=== PATIENT | male | born 1965 | race Caucasian/White ===

== ENCOUNTER 2021-07-01 15:17 | Emergency (ER) | payer MEDICARE, MEDICAID ==
[~2021-07-01] VITALS: Ht 182.9 cm; Wt 88.0 kg
[2021-07-01] MEDS ORDERED: fentaNYL PF VIAL 100 MCG/2 ML VIAL IVP ONE (16:45)
--- NOTE | 2021-07-01 16:52 | PHYS DOC ---
Past Medical History Additional Past Medical Histor: Hep C, closed head injury, drug abuse Past Surgical History: Other Additional Past Surgical Histo: urethral dilation, "cysts removed from my urinary canal" Smoking Status: Current Every Day Smoker Additional Information: 1ppd Alcohol Use: Occasionally Additional Information: reports drinking twice a week General Adult EDM: Chief Complaint: LOWER EXTREMITY EDEMA HPI: HPI: Patient is a 55 year old male who presents with 2 years of right knee pain and left calf pain. But he stating that he is also having bilateral lower leg swelling which has been going on for less than a year. Patient is not forthcoming with information. He first told me he was having numbness and tingling and then stated he was not having numbness and tingling. States he is just having pain that is sharp. He does use a walker. When asked why he is needing to use a walker he states " because I cannot walk without it". I then asked what happened that caused you to need the walker? He then stated " I do not know. I fell a while back and broke my back or something like that." Rates his pain a 10 out of 10. When asked if anything makes his pain worse or better he states " it just hurts". Patient was sent here by [facility] [place] to rule out clots in his leg. Patient has a history of smoking 1 pack a day, drug abuse, closed head injury, hep C, urethral dilation. Review of Systems: Review of Systems: Constitutional: Denies fever or chills. [] Eyes: Denies change in visual acuity. [] HENT: Denies nasal congestion or sore throat. [] Respiratory: Denies cough or shortness of breath. [] Cardiovascular: Denies chest pain or edema. [] GI: Denies abdominal pain, nausea, vomiting, bloody stools or diarrhea. [] : Denies dysuria. [] Musculoskeletal: Denies back pain or + right knee joint pain. + Left calf [] Integument: Denies rash. [] Neurologic: Denies headache, focal weakness or sensory changes. [] Endocrine: Denies polyuria or polydipsia. [] Lymphatic: Denies swollen glands. [] Psychiatric: Denies depression or anxiety. [] Heart Score: C/O Chest Pain: No Current Medications: Current Medications Medications (Trade) Dose Ordered Sig/Louie Start Time Stop Time Status Last Admin Dose Admin Fentanyl Citrate (Fentanyl 2ml Vial) 50 mcg 1X ONCE 07/01/21 16:45 07/01/21 16:46 Allergies: Allergies: Allergies Coded Allergies Type Severity Reaction Last Updated Verified No Known Drug Allergies 07/01/21 No Physical Exam: PE: Constitutional: Well developed, well nourished, no acute distress, non-toxic appearance. [] HENT: Normocephalic, atraumatic, bilateral external ears normal, oropharynx moist, no oral exudates, nose normal. [] Eyes: PERRLA, EOMI, conjunctiva normal, no discharge. [] Neck: Normal range of motion, no tenderness, supple, no stridor. [] Cardiovascular:Heart rate regular rhythm, no murmur [] Lungs & Thorax: Bilateral breath sounds clear to auscultation [] Abdomen: Bowel sounds normal, soft, no tenderness, no masses, no pulsatile masses. [] Skin: Warm, dry, no erythema, no rash. Bilateral lower ankle to feet dusky but pulses present bilaterally. Cap refill 3 seconds. [] Back: No tenderness, no CVA tenderness. [] Extremities: No tenderness, no cyanosis, no clubbing, right knee ROM not intact, bilateral lower 2+ edema. [] Neurologic: Alert and oriented X 3, normal motor function, normal sensory function, no focal deficits noted. [] Psychologic: Affect normal, judgement normal, mood normal. [] Current Patient Data: Vital Signs: Vital Signs Date Time Temp Pulse Resp B/P (MAP) Pulse Ox O2 Delivery O2 Flow Rate FiO2 07/01/21 15:28 97.3 102 24 171/109 (129) 98 Room Air 97.3 EKG: EKG: [] Radiology/Procedures: Radiology/Procedures: [] Impression: [facility] [address] [place] [address] IMAGING REPORT Signed PATIENT: CHUCKY JEANACCOUNT: [id number] : 1965 LOCATION: ER AGE: 55 SEX: M EXAM STATUS: REG ER ORD. PHYSICIAN: ANNIE MAC APRN REASON: PAIN, SWELLING, DUSKY IN COLOR PROCEDURE: DUPLEX LOWER EXTREMITY BILAT Bilateral lower extremity arterial duplex study 07/01/2021 CLINICAL HISTORY: Bilateral leg pain and swelling. Dusky feet. TECHNIQUE: Using a combination of real-time ultrasound imaging and color-flow and pulse Doppler imaging techniques, duplex evaluation of the major arterial structures of both lower extremities was performed. Multiple images were obtained. Mild atheromatous/atherosclerotic plaque formation is seen scattered throughout the major arterial structures of both lower extremities. Triphasic arterial waveforms are seen throughout. The peak systolic velocities taper normally. No hemodynamically significant stenosis or area of occlusion is seen. IMPRESSION: Mild atheromatous/atherosclerotic plaque formation is seen scattered throughout the major arterial structures of both lower extremities. No hemodynamically significant stenosis or area of occlusion is seen. Electronically signed by: Mikael Guerrero MD (07/01/2021 7:35 PM) [id number] DICTATED and SIGNED BY: MIKAEL GUERRERO MD DATE: 07/01/[id number] [address] [address] IMAGING REPORT Signed PATIENT: CHUCKY JEANACCOUNT: [id number] : 1965 LOCATION: ER AGE: 55 SEX: M EXAM STATUS: REG ER ORD. PHYSICIAN: ANNIE MAC APRN REASON: PAIN, SWELLING, DUSKY IN COLOR PROCEDURE: VENOUS LOWER EXT BILATERAL Bilateral lower extremity venous duplex study 07/01/2021 Clinical History: Bilateral leg pain and swelling. Technique: Using a combination of real time ultrasound imaging and color-flow and pulse Doppler imaging techniques along with graded compression and augmentation, duplex evaluation of the deep venous system of the both lower extremities was performed. Multiple images were obtained. Findings: There is no sonographic evidence of deep venous thrombosis involving t he visualized deep venous structures of either lower extremity. Impression: Negative study. Electronically signed by: Mikael Guerrero MD (07/01/2021 7:29 PM) [id number] DICTATED and SIGNED BY: MIKAEL GUERRERO MD DATE: 07/01/21 [id number] [address] [address] IMAGING REPORT Signed PATIENT: CHUCKY JEANACCOUNT: [id number] : 1965 LOCATION: ER AGE: 55 SEX: M EXAM STATUS: REG ER ORD. PHYSICIAN: ANNIE MAC APRN REASON: pain PROCEDURE: KNEE RIGHT 3V Right knee 3 views. HISTORY: Pain 3 views were taken of the right knee. There is mild joint space narrowing in the medial joint compartment. There is no acute fracture. There is no joint effusion. There is no other osseous abnormality. IMPRESSION: 1. No fracture or acute osseous abnormality. 2. Mild joint space narrowing medially. Electronically signed by: Chucky Mosley MD (07/01/2021 8:42 PM) [facility] DICTATED and SIGNED BY: CHUCKY MOSLEY MD DATE: 07/01/[id number] 0 Course & Med Decision Making: Course & Med Decision Making Pertinent Labs and Imaging studies reviewed. (See chart for details) Alert and oriented x4. Ambulatory with slow gait with walker. Speaks in full clear sentences. Is moving all of his extremities equally. Cannot fully extend the right extremity at the knee due to pain. No joint swelling, tenderness, redness. Bilateral lower extremity 1-2+. Dusky in color. Cap refill at 3 s econds. Sensations are intact. He can wiggle his toes. No calf tenderness. No extremity tenderness or deformity. No focal weakness. [] Dragon Disclaimer: Dragzelda Disclaimer: This electronic medical record was generated, in whole or in part, using a voice recognition dictation system. Departure Departure Impression: Primary Impression: Chronic pain of left lower extremity Additional Impressions: Right knee pain Qualified Codes: M25.561 - Pain in right knee Peripheral edema Marijuana abuse Methamphetamine abuse Disposition: HOME / SELF CARE / HOMELESS Condition: STABLE Patient Instructions: Chronic Pain, Drug Abuse and Addiction-SportsMed, Knee Pain, Peripheral Edema, Smoking Cessation Additional Instructions: He to follow-up with your primary care physician for your chronic pain. Your scans today came back negative for any type of clot. If at all possible stop smoking and doing drugs. ANNIE MAC APRN Jul 01, 2021 16:52
--- NOTE | 2021-07-01 17:18 | RAD ---
CT scan of the lumbar spine without contrast 07/01/2021 CLINICAL HISTORY: Low back pain. TECHNIQUE: Unenhanced, contiguous, 0.625 mm axial sections were obtained through the lumbar spine. 3 mm reconstructed sagittal, axial and coronal images were obtained. One or more of the following individualized dose reduction techniques were utilized for this study: 1. Automated exposure control. 2. Adjustment of the mA and/or kV according to patient size. 3. Use of iterative reconstruction technique. FINDINGS: Sagittal and coronal reconstructed images demonstrate mild S-shaped curvature of the thorac olumbar spine. Degenerative changes consisting of varying degrees of disc space narrowing, vacuum dis c phenomenon, subchondral sclerosis and mild to moderate anterior and posterior vertebral body osteop hyte formation is seen throughout the lumbar disc spaces. Atherosclerotic calcification of the abdomi nal aorta and its branches is noted. No fracture or subluxation of the lumbar vertebrae is seen. On the axial images at the L1-2 disc space there is a mild generalized disc bulge. This is eccentric to the left. Superimposed on this disc bulge is a central/right paracentral disc osteophyte complex. This measures 4 mm in AP diameter. Degenerative changes are seen involving the facet joints bilateral ly. These findings when combined do not result in significant central spinal canal stenosis. Mild to moderate left neural foraminal stenosis is seen. The right neural foramen is patent. At the L2-3 disc space there is a mild to moderate generalized disc bulge. This is eccentric to the l eft. Degenerative changes are seen involving the facet joints bilaterally. There is mild ligamentum f lavum hypertrophy bilaterally. These findings when combined do not result in significant central spin al canal stenosis. Mild to moderate left neural foraminal stenosis is seen. The right neural foramen is patent. At the L3-4 disc space there is a mild generalized disc bulge. Degenerative changes are seen involvin g the facet joints bilaterally. There is mild ligamentum flavum hypertrophy bilaterally. These findin gs when combined do not result in significant central spinal canal stenosis. Mild to moderate bilater al neural foraminal stenosis is seen. At the L4-5 disc space there is a mild to moderate generalized disc bulge. This is eccentric to the r ight. Degenerative changes are seen involving the facet joints bilaterally. There is mild ligamentum flavum hypertrophy bilaterally. These findings when combined result in mild central spinal canal sten osis. Mild to moderate right greater than left neural foraminal stenosis is seen. At the L5-S1 disc space there is a mild generalized disc bulge. Degenerative changes are seen involvi ng the facet joints bilaterally. These findings when combined do not result in significant central sp inal canal stenosis. Mild bilateral neural foraminal stenosis is seen at L5-S1. IMPRESSION: The changes of degenerative disc disease are seen throughout the lumbar spine. These find ings result in mild central spinal canal stenosis at L4-5. Multilevel neural foraminal stenosis of va rying severity is seen as discussed above. No acute osseous abnormality is seen. Electronically signed by: Mikael Guerrero MD (07/01/2021 5:16 PM) [id number]
[2021-07-01 17:19] LABS: BASO # 0.1 x10^3/uL (0.0-0.2); BASO % 1 % (0-3); EOS # 0.4 x10^3/uL (0.0-0.7); EOS % 5 % (0-3); HEMATOCRIT 46.7 % (39.0-53.0); HEMOGLOBIN 16.1 g/dL (13.0-17.5); LYMPH # 2.2 x10^3/uL (1.0-4.8); LYMPH % 23 % (24-48); MEAN CORPUSCULAR HEMOGLOBIN 31 pg (25-35); MEAN CORPUSCULAR HGB CONC 35 g/dL (31-37); MEAN CORPUSCULAR VOLUME 91 fL (79-100); MONO % 11 % (0-9); NEUT # 5.8 x10^3/uL (1.8-7.7); NEUT % 61 % (31-73); PLATELET COUNT 392 x10^3/uL (140-400); RED BLOOD COUNT 5.15 x10^6/uL (4.30-5.70); RED CELL DISTRIBUTION WIDTH 14.2 % (11.5-14.5); WHITE BLOOD COUNT 9.5 x10^3/uL (4.0-11.0)
[2021-07-01 17:29] LABS: CALCIUM 8.7 mg/dL (8.5-10.1); CREATININE 1.1 mg/dL (0.7-1.3); GFR 69.5
[2021-07-01 17:34] LABS: ALBUMIN 3.4 g/dL (3.4-5.0); ALBUMIN/GLOBULIN RATIO 0.8 (1.0-1.7); TOTAL BILIRUBIN 0.4 mg/dL (0.2-1.0); TOTAL PROTEIN 7.6 g/dL (6.4-8.2)
[2021-07-01 18:15] LABS: BARBITURATES NEG (NEG); BENZODIAZEPINES NEG (NEG); CANNABINOIDS POS (NEG); COCAINE NEG (NEG); METHADONE NEG (NEG); OPIATES NEG (NEG); PHENCYCLIDINE NEG (NEG)
[2021-07-01 18:17] LABS: AMPHETAMINE/METHAMPHETAMINE POS (NEG)
[2021-07-01 19:08] LABS: PROTHROMBIN TIME PATIENT 13.8 SEC (11.7-14.0)
--- NOTE | 2021-07-01 19:32 | RAD ---
Bilateral lower extremity venous duplex study 07/01/2021 Clinical History: Bilateral leg pain and swelling. Technique: Using a combination of real time ultrasound imaging and color-flow and pulse Doppler imagi ng techniques along with graded compression and augmentation, duplex evaluation of the deep venous sy stem of the both lower extremities was performed. Multiple images were obtained. Findings: There is no sonographic evidence of deep venous thrombosis involving the visualized deep ve nous structures of either lower extremity. Impression: Negative study. Electronically signed by: Mikael Guerrero MD (07/01/2021 7:29 PM) [id number]
--- NOTE | 2021-07-01 19:38 | RAD ---
Bilateral lower extremity arterial duplex study 07/01/2021 CLINICAL HISTORY: Bilateral leg pain and swelling. Dusky feet. TECHNIQUE: Using a combination of real-time ultrasound imaging and color-flow and pulse Doppler imagi ng techniques, duplex evaluation of the major arterial structures of both lower extremities was perfo rmed. Multiple images were obtained. Mild atheromatous/atherosclerotic plaque formation is seen scattered throughout the major arterial st ructures of both lower extremities. Triphasic arterial waveforms are seen throughout. The peak systol ic velocities taper normally. No hemodynamically significant stenosis or area of occlusion is seen. IMPRESSION: Mild atheromatous/atherosclerotic plaque formation is seen scattered throughout the major arterial structures of both lower extremities. No hemodynamically significant stenosis or area of oc clusion is seen. Electronically signed by: Mikael Guerrero MD (07/01/2021 7:35 PM) [id number]
--- NOTE | 2021-07-01 20:44 | RAD ---
Right knee 3 views. HISTORY: Pain 3 views were taken of the right knee. There is mild joint space narrowing in the medial joint compart ment. There is no acute fracture. There is no joint effusion. There is no other osseous abnormality. IMPRESSION: 1. No fracture or acute osseous abnormality. 2. Mild joint space narrowing medially. Electronically signed by: Chucky Mosley MD (07/01/2021 8:42 PM) [facility]
[2021-07-01 21:50] VITALS: BP 207/114
== END 2021-07-01 22:07 | disposition home or self-care (01) ==
LOC: ER 15:17
DX: G89.29 Other chronic pain (principal); M79.662 Pain in left lower leg; M25.561 Pain in right knee; R60.0 Localized edema; F12.10 Cannabis abuse, uncomplicated; F15.10 Other stimulant abuse, uncomplicated; F17.200 Nicotine dependence, unspecified, uncomplicated
CPT/HCPCS: 36415; 72131; 73562; 80053; 80307; 83880; 85025; 85610; 85730; 93925; 93970; 96374; 99285; G0480; J3010